=== PATIENT | male | born 1995 | race African-American/Black ===

== ENCOUNTER 2018-01-31 16:51 | Emergency (ER) | payer MEDICAID ==
[~2018-01-31] VITALS: Ht 175.3 cm; Wt 61.2 kg
[2018-01-31] MEDS ORDERED: NKM (17:05)
[2018-01-31 17:10] VITALS: BP 101/64
--- NOTE | 2018-01-31 17:54 | Emergency Room Report ---
History of Present Illness General Chief Complaint: Vomiting Source: Patient Present Illness HPI 22-year-old male with no medical problems comes ER with complaints of altered mental bouts roughly 10 of nausea vomiting nonbloody [id number]-[id number] material as well as nonbilious material since waking up this morning after eating [employer] last night. He reports normal bowel movements, no diarrhea, no fevers but does report sharp abdominal pain in his epigastric area. He also reports using marijuana recently and reports that his only drug he uses. Allergies: Coded Allergies: No Known Allergies (Unverified , 01/31/18) Patient History Past Medical History: see triage record Reviewed Nursing Documentation: PMH: Agreed, PSxH: Agreed Nursing Documentation-PMH Past Medical History: No Stated History Review of Systems All Other Systems: negative except mentioned in HPI Physical Exam Vital Signs Date Time Temp Pulse Resp B/P (MAP) Pulse Ox O2 Delivery O2 Flow Rate FiO2 01/31/18 17:00 98.2 89 20 107/68 100 Room Air 98.2 Sp02 EP Interpretation: reviewed, normal General Appearance: no apparent distress, alert, non-toxic Head: normocephalic Eyes: bilateral eye normal inspection, bilateral eye PERRL, bilateral eye EOMI ENT: normal ENT inspection, hearing grossly normal, normal pharynx, no angioedema, normal voice, moist mucus membranes Neck: normal inspection, full range of motion, supple, supple/symm/no masses Respiratory: chest non-tender, lungs clear, normal breath sounds, chest symmetrical, palpation of chest normal Cardiovascular #1: normal peripheral pulses, regular rate, rhythm Cardiovascular #2: 2+ radial (R), 2+ radial (L) Gastrointestinal: normal inspection, non tender, soft, no mass, no guarding, no rebound Rectal: deferred Genitourinary: normal inspection, no CVA tenderness Musculoskeletal: back normal, gait/station normal, normal range of motion, non- tender, no calf tenderness Neurologic: alert, responsive, coldfusion III-XII nml as tested, motor strength/tone normal, sensory intact, speech normal Psychiatric: judgement/insight normal, memory normal, mood/affect normal, no suicidal/homicidal ideation Skin: normal color, no rash, warm/dry, normal turgor Lymphatic: no adenopathy Medical Decision Making Reaction to Intervention: Improved Diagnostic Impression: Primary Impression: Vomiting ER Course Patient with vomiting had a soft nontender abdomen, symptoms are likely acute gastritis from the food he ate versus possible cyclic vomiting from recent marijuana use. In any case is a soft nontender abdomen, unremarkable labs including LFTs and lipase and white count and hemoglobin. Be discharged as he was given IV fluids and antiemetics and will be given Zofran when necessary prescription. Serial exams reveal soft nontender abdomen on multiple evaluations. Rhythm Strip Diag. Results Rhythm Strip Time: 19:15 EP Interpretation: yes Rate: 83 Rhythm: NSR, no PVC's, no ectopy Last Vital Signs Date Time Temp Pulse Resp B/P (MAP) Pulse Ox O2 Delivery O2 Flow Rate FiO2 01/31/18 17:10 98.2 88 16 101/64 97 Room Air 98.2 Status: improved Disposition: HOME, SELF-CARE Condition: Stable BREONNA ELKINS M.D Jan 31, 2018 17:54
[2018-01-31 18:22] LABS: HEMATOCRIT 48.3 % (42.0-52.0); HEMOGLOBIN 16.3 G/DL (14.2-18.0); MEAN CORPUSCULAR VOLUME 89 FL (80-99); PLATELET COUNT 188 K/UL (150-450); RED BLOOD COUNT 5.44 M/UL (4.70-6.10); RED CELL DISTRIBUTION WIDTH 11.5 % (11.6-14.8); WHITE BLOOD COUNT 10.6 K/UL (4.8-10.8)
[2018-01-31 18:26] LABS: BASOPHILS % (AUTO) 0.5 % (0.0-2.0); EOSINOPHILS % (AUTO) 0.1 % (0.0-3.0); LYMPHOCYTES % (AUTO) 2.9 % (20.0-45.0); MONOCYTES % (AUTO) 7.6 % (1.0-10.0); NEUTROPHILS % (AUTO) 88.9 % (45.0-75.0)
[2018-01-31 18:41] LABS: ANION GAP 8 mmol/L (5-15); BLOOD UREA NITROGEN 14 mg/dL (7-18); CALCIUM 9.1 MG/DL (8.5-10.1); CARBON DIOXIDE 28 MMOL/L (21-32); CHLORIDE 100 MMOL/L (98-107); CREATININE 1.1 MG/DL (0.55-1.30); POTASSIUM 3.7 MMOL/L (3.5-5.1); SODIUM 136 MMOL/L (136-145)
[2018-01-31 18:54] VITALS: BP 108/64
[2018-01-31 19:05] LABS: ALANINE AMINOTRANSFERASE 20 U/L (12-78); ALBUMIN 4.2 G/DL (3.4-5.0); ALBUMIN/GLOBULIN RATIO 1.2 (1.0-2.7); ALKALINE PHOSPHATASE 84 U/L (46-116); ASPARTATE AMINO TRANSFERASE 23 U/L (15-37); BILIRUBIN,TOTAL 1.1 MG/DL (0.2-1.0)
[2018-01-31 19:07] LABS: BILIRUBIN,DIRECT 0.2 MG/DL (0.0-0.3)
[2018-01-31] MEDS ORDERED: PEPCID20 MG ORAL (19:17)
[2018-01-31] MEDS ORDERED: ZOFRAN ODT4 MG ORAL (19:17)
[2018-01-31 19:30] VITALS: BP 110/68
[2018-01-31 19:35] VITALS: BP 110/68
== END 2018-01-31 19:35 | disposition home or self-care (01) ==
LOC: EMR 19:35
DX: R11.10 Vomiting, unspecified (principal)
CPT/HCPCS: 36415; 80053; 82248; 83690; 85025; 96361; 96374; 99284; J2405

== ENCOUNTER 2020-10-27 10:11 | Emergency (ER) | payer MEDICAID ==
[~2020-10-27] VITALS: Ht 177.8 cm; Wt 70.3 kg
[~2020-10-27 10:11] MED LIST: NKM; PEPCID20 MG ORAL; ZOFRAN ODT4 MG ORAL
[2020-10-27 10:22] VITALS: BP 106/69
[2020-10-27] MEDS ORDERED: IBUPROFEN600 M1 ORAL (11:32)
[2020-10-27] MEDS ORDERED: NORCO 5-325 TA1 EAC1 ORAL (11:41)
[2020-10-27 11:46] VITALS: BP 110/72
--- NOTE | 2020-10-27 14:08 | Diagnostic Imaging Report ---
INDICATION: Elbow pain TECHNIQUE: Frontal, lateral, and oblique views of the right elbow COMPARISON: None FINDINGS: No acute fracture or dislocation. There is elevation of the anterior fat pad, which may be physiologic. Joint spaces are maintained. No acute soft tissue abnormality. IMPRESSION: No acute fracture or dislocation.
--- NOTE | 2020-10-27 14:45 | Emergency Room Report ---
History of Present Illness General Chief Complaint: Upper Extremity Injury Source: Patient Present Illness HPI 24-year-old otherwise healthy male here with right elbow pain. Patient says that he was boxing and that he hit his opponent with his right hand and felt immediate pain and "a pop" in his right elbow. Says that "it felt like it came out of place and then popped right back in." Patient says that this happened last night. He has been able to use the right upper extremity and range his right elbow albeit with pain. No focal numbness or paresthesias. No other injury. Allergies: Coded Allergies: No Known Allergies (Unverified , 01/31/18) COVID-19 Screening Contact w/high risk pt: No Experienced COVID-19 symptoms?: No COVID-19 Testing performed [employer]: Yes COVID-19 Screening: Positive COVID-19 COVID-19 Testing Source: 05/2020 Nursing Documentation-[facility] Past Medical History: No Stated History Review of Systems All Other Systems: negative except mentioned in HPI Physical Exam Vital Signs Date Time Temp Pulse Resp B/P (MAP) Pulse Ox O2 Delivery O2 Flow Rate FiO2 10/27/20 10:14 98.1 74 18 106/69 (81) 96 Room Air Sp02 EP Interpretation: reviewed, normal General Appearance: no apparent distress, alert, non-toxic Head: normocephalic, atraumatic Eyes: bilateral eye normal inspection, bilateral eye PERRL ENT: hearing grossly normal, normal pharynx, no angioedema, normal voice Neck: full range of motion, supple/symm/no masses Respiratory: chest non-tender, lungs clear, normal breath sounds, speaking full sentences Cardiovascular #1: regular rate, rhythm, no edema Cardiovascular #2: 2+ carotid (R), 2+ carotid (L), 2+ radial (R), 2+ radial (L), 2+ dorsalis pedis (R), 2+ dorsalis pedis (L) Gastrointestinal: normal bowel sounds, non tender, soft, non-distended, no guarding, no rebound Rectal: deferred Genitourinary: normal inspection, no CVA tenderness Musculoskeletal: back normal, normal range of motion, calf tenderness, gait/station normal, other - Diffuse swelling and mild tenderness on palpation of the right elbow. No bony deformity palpable. Normal pulses and sensation distally. Normal range of motion, albeit slow secondary to pain Neurologic: alert, motor strength/tone normal, oriented x3, sensory intact, responsive, speech normal Psychiatric: judgement/insight normal, memory normal, mood/affect normal, no suicidal/homicidal ideation Reflexes: 3+ bicep (R), 3+ bicep (L), 3+ tricep (R), 3+ tricep (L), 3+ knee (R), 3+ knee (L) Lymphatic: no adenopathy Medical Decision Making Diagnostic Impression: Primary Impression: Injury of upper extremity ER Course Splint note: Zay wrap placed on the right elbow. Neurovascular intact before and after the Zay wrap was placed 24-year-old otherwise healthy male here with right elbow pain. Patient says that he was boxing yesterday and during a sparring match he felt a pop of his right elbow and says "it felt like it dislocated then popped right back in." X- ray did not reveal any acute fracture or dislocation. However he did have notable diffuse swelling of the right elbow. He was given a sling for the right upper extremity and told to refrain from using the right upper extremity for 7 days. He will follow-up with his own orthopedic surgeon. Discharged in stable condition. Last Vital Signs Date Time Temp Pulse Resp B/P (MAP) Pulse Ox O2 Delivery O2 Flow Rate FiO2 10/27/20 11:46 98.1 78 19 110/72 98 Room Air Disposition: HOME, SELF-CARE Condition: Stable Scripts Hydrocodone Bit/Acetaminophen 5-325* (NORCO 5-325 TABLET*) 1 Each Tablet 1 TAB ORAL Q4H PRN for For Pain, #10 TAB Prov: Zack Reynoso M.D. 10/27/20 Ibuprofen* (MOTRIN*) 600 Mg Tablet 600 MG ORAL Q6H PRN for FOR PAIN, #20 TAB 0 Refills Prov: Zack Reynoso M.D. 10/27/20 Referrals: LISE LERMA,REFERRING (PCP) [facility] Departure Forms: Return to Work Other Restrictions: Do not lift anything heavier than 5 pounds with the right arm for 7 days Zack Reynoso M.D. Oct 27, 2020 14:45
== END 2020-10-27 11:46 | disposition home or self-care (01) ==
LOC: EMR 10:52
DX: S59.901A Unspecified injury of right elbow, initial encounter (principal); Y93.71 Activity, boxing; Y92.9 Unspecified place or not applicable; Z86.19 Personal history of other infectious and parasitic diseases
CPT/HCPCS: 73080; Z7502; 99283